=== PATIENT | female | born 1945 | race Caucasian/White ===

== ENCOUNTER 2020-09-07 08:46 | Outpatient (CLI) | payer OTHER, SELFPAY ==
--- NOTE | 2020-09-08 09:25 | WPDNEUROLOGY ---
Neurology EEG Report General Information Date of Study: 09/07/20 TEST eeg DIAGNOSIS Seizure disorder CONDITION OF RECORDING awake drowsy and sleep EEG NUMBER [id number] CLINICAL HISTORY patient is a known case of seizure disorder, started having episodes of blank stares and zoning out brief periods of time about 30 years ago EEG DESCRIPTION basic resting occipital frequency consists of low to medium voltage 8 to 10 hertz per 2nd alpha admixed with large amount of low-voltage 15 to 18 hertz per 2nd beta. During drowsiness low-voltage beta activity seen diffusely admixed with waxing and waning posterior alpha rhythm. Bilateral symmetrical sleep activity seen during sleep. Hyperventilation not done. Photic stimulation produced normal drive. Non paroxysmal. Nonfocal. Nonlateralizing. IMPRESSION No significant abnormalities noted. Clinical correlation recommended
== END 2020-09-07 08:47 | disposition home or self-care (01) ==
LOC: ANHNEURO 08:47
PROVIDERS: PCP Internal Medicine Infectious Disease; Visit Provider Psychiatry & Neurology Neurology
DX: G40.909 Epilepsy, unspecified, not intractable, without status epilepticus (principal)
CPT/HCPCS: 95816

== ENCOUNTER 2022-12-19 13:06 | Emergency (ER) | payer OTHER, SELFPAY ==
--- NOTE | ~2022-12-19 | CT_ITS ---
EXAMINATION: CT pelvis wo con DATE: 12/19/2022 15:46 INDICATION: Bilateral hip and pelvic pain. TECHNIQUE: High resolution computed tomography (CT) of the pelvis was performed without intravenous c ontrast. Additional sagittal and coronal reconstructions were performed. Automated exposure control a nd iterative reconstruction technique were employed. The dose-length product was 414.88 mGy-cm. COMPARISON: None FINDINGS: Nondisplaced sacral insufficiency fractures extending craniocaudally along the bilateral sacral ala a nd transversely across the level of the S2 vertebral body. Chronic L3 compression fracture with <20% central vertebral body height loss and change of prior vertebroplasty. Moderate spondylosis in the vi sualized lower lumbar spine including 4 mm anterolisthesis L5 on S1 with severe associated bilateral facet osteoarthritis. Alignment is otherwise normal. Mild bilateral hip osteoarthritis and mild to mo derate bilateral sacroiliac osteoarthritis. No hip joint effusions. Cholecystectomy clips at the gall bladder fossa. There is moderate colonic diverticulosis with a sigmoid predominance. There is no adj acent inflammatory change to suggest diverticulitis. The uterus is not identified and has likely been surgically resected. No pathologically enlarged pelvic or inguinal lymphadenopathy. IMPRESSION: Typical pattern of acute nondisplaced sacral insufficiency fractures at the left and right sacral ala and extending across the S2. Reviewed, dictated and finalized at location A. IMPRESSION: Typical pattern of acute nondisplaced sacral insufficiency fractures at the lef t and right sacral ala and extending across the S2.
--- NOTE | ~2022-12-19 | CT_ITS ---
EXAMINATION: CT lumbar spine wo con DATE: 12/19/2022 15:45 INDICATION: Back pain TECHNIQUE: Computed tomography (CT) of the lumbar spine was performed without intravenous contrast. A utomated exposure control and iterative reconstruction technique were employed. The dose-length produ ct was 833.75 mGy-cm. COMPARISON: None FINDINGS: 4 mm anterolisthesis L5 on S1. No associated pars intra-articularis defects. Alignment is otherwise n ormal. Chronic compression fractures of T11-L3 with change of prior vertebroplasty at L3. Moderate di sc height loss at L4-L5. Mild disc height loss at T11-T12 and L5-S1. Multilevel disc bulges resulting in mild central canal stenosis at L1-L2 through L5-S1. Severe bilateral facet osteoarthritis at L5-S 1. Additional bilateral multilevel mild to moderate facet osteoarthritis with lower lumbar and lower thoracic predominance. This contributes to multilevel bilateral neural foraminal stenosis, moderate t o severe bilaterally at L5-S1, moderate bilaterally at 10 T11 and L4-L5 and mild at the remaining int ervening neural foramina. Acute appearing sacral insufficiency fracture across S2 and craniocaudally at the lateral aspect of the left and right sacral ala. IMPRESSION: 1. Moderate lumbar and lower thoracic spondylosis with chronic compression fractures of T11-L3 and pr ior L3 vertebroplasty. 2. Acute appearing sacral insufficiency fractures. Reviewed, dictated and finalized at location A. IMPRESSION: 1. Moderate lumbar and lower thoracic spondylosis with chronic compression frac tures of T11-L3 and prior L3 vertebroplasty. 2. Acute appearing sacral insufficiency fractures.
[2022-12-19 13:20] VITALS: BP 146/98; PULSE 90; RESP 16; TEMP 36.8; O2SAT 98
[2022-12-19 15:08] VITALS: BP 153/80; PULSE 74; RESP 18; TEMP 36.7; O2SAT 98
[2022-12-19] MEDS: HYDROcodone/acetaminophen (*CRX) 5-325 MG TABLET 1 TAB PO (15:56)
[2022-12-19 17:10] VITALS: BP 143/74; PULSE 83; RESP 16; O2SAT 96
--- NOTE | 2022-12-19 17:10 | PCCCNOTE ---
Addendum entered by Melanie Snow RN 12/19/22 17:23: Per patient, the only living family of immediate is one sister who is 94. Does have a nephew Gil Garcia who she designates as healthcare poa but has not filled out paperwork. Patient states that her friend Farnaz will be at her house tonight to assist with caregiving. Patient's friend Lorne has arrived and patient is okay to continue conversation with career technical supervisor with Lorne in the room. Original Note: Late entry: Phone call received from registered nurse supervisor Lili to meet with patient regarding long term. Met with patient in ED room 7, she lives alone and has a friend Farnaz that helps her at night. She just needs help getting up and down but uses a cane for walking. Farnaz will do cooking and patient will reheat via microwave. She states that her insurance is working to get her a caregiver during the day. She has a stage technician but she does not know the case workers name and is male. Patient's primary Dr. Mendieta and she has seen him recently and he is trying to help her get into a rehab. Patient wants to get rehab and then get home, the main problem is the pain. Her PCP has referred to pain management but she does not have an appt for a couple weeks. Explained that is point per direction of Dr. Alejandra there is not a medical qualifying dx to be admitted that she will need to continue to work with PCP for rehab-home health. Provided resources on SNFs that take [facility]. Encouraged to contact case briefer with [facility] to help coordinate with PCP. Called to Dr. Mendieta's office no answer unable to leave a vm. Called to [facility] health plan at [phone], per Sylvie in [employer] that patient's case briefer is George Haque at [phone]. Called to George, no answer but does have confidential vm. Left VM advising that patient was discharging from ED and had been in another ED x2 this past weekend, requesting that CM work with PCP to assist patient with rehab/home health therapy.
--- NOTE | 2022-12-19 17:53 | ED.GENADULT ---
HPI - General Adult General Chief complaint: Extremity Injury, Lower Stated complaint: bilateral hip pain Time Seen by Provider: 12/19/22 14:55 History of Present Illness HPI narrative: Patient is a 77-year-old female who presents ER with reports of buttock and bilateral hip pain. Ongoing for 6 weeks. Reports she was recently seen at an outside hospital. She reports she had imaging and was given some pain medication. She is unsure what her imaging showed and is unsure what pain medication she was on. She does know she still takes some Celebrex and she does not take Tylenol. She reports she followed up with her PCP who referred her to pain management but she cannot get in until 01/03/2023. She is unsure what the actual diagnosis is that she is being referred to pain management for. She is also been in touch with her PCP about possible placement at [facility] because she feels like she needs help. She reports she is able to ambulate with a walker and a cane. She reports she will occasionally fall but she attributes that to her seizure disorder as well. Denies any recent falls. She does have a friend who comes to help care for her at night. Related Data Home Medications Medication Instructions Recorded Confirmed alendronate 70 mg tablet 70 mg PO WEEKLY 07/22/21 07/22/21 buspirone 7.5 mg tablet 7.5 mg PO BID 07/22/21 07/22/21 fludrocortisone 0.1 mg tablet 0.1 mg PO BID 07/22/21 07/22/21 oxybutynin chloride 5 mg tablet 15 mg PO DAILY 07/22/21 07/22/21 sertraline 50 mg tablet 50 mg PO DAILY 07/22/21 07/22/21 Allergies Allergy/AdvReac Type Severity Reaction Status Date / Time sulfamethoxazole Allergy Unknown Verified 12/19/22 15:34 trimethoprim Allergy Unknown Verified 12/19/22 15:34 Review of Systems Review of Systems: All systems reviewed & are unremarkable except as noted in HPI and below Constitutional: Constitutional: Denies chills, Denies fatigue and Denies fever(s) ENT: Denies nasal congestion and Denies sore throat Cardiovascular: Cardiovascular: Denies chest pain and Denies rapid heart rate Respiratory: Respiratory: Denies cough and Denies dyspnea Gastrointestinal: Gastrointestinal: Denies abdominal pain, Denies nausea and Denies vomiting Musculoskeletal: Musculoskeletal: Denies back pain, Denies arthralgias and Denies joint swelling PMFSH Past Medical History Medical History (Updated 12/19/22 @ 19:40 by Leo Alejandra MD) Depression Osteoporosis Seizures Surgical History Surgical History (Updated 12/19/22 @ 19:40 by Leo Alejandra MD) Surgical history unknown Exam Narrative: GENERAL: Comfortable -appearing, well-nourished, and in no acute distress. HEAD: Normocephalic, atraumatic. EYES: PERRL and EOMI. ENT: Mucous membranes moist. CHEST: Clear to auscultation. No respiratory distress. HEART: Regular rate and rhythm. Normal peripheral pulses. ABDOMEN: Soft, nontender, nondistended. Back: No reproducible midline tenderness to T/L-spine but there is paraspinal muscular tenderness in the lower lumbar regions. No step-offs or bruising or abrasion. [place] EXTREMITIES: Normal range of motion. No edema. SKIN: Warm, dry, no rash. NEURO: Alert and oriented x3. PSYCH: Normal mood and affect. Course Course Emergency Course: It appears patient has some sacral insufficiency fractures. Care coordination has been down. Patient cannot be placed to rehab through the ER. Patient be given pain control for home and knows to follow-up with PCP about any additional care. Vital Signs Vital signs: Vital Signs Temperature 98.2 F 12/19/22 13:20 Pulse Rate 90 12/19/22 13:20 Respiratory Rate 16 12/19/22 13:20 Blood Pressure 146/98 H 12/19/22 13:20 Pulse Oximetry 98 12/19/22 13:20 Oxygen Delivery Room Air 12/19/22 13:20 Temperature 98.0 F 12/19/22 15:08 Pulse Rate 74 12/19/22 19:02 Respiratory Rate 18 12/19/22 19:02 Blood Pressure 139/8
[2022-12-19 19:02] VITALS: BP 139/85; PULSE 74; RESP 18; O2SAT 98
== END 2022-12-19 19:58 | disposition home or self-care (01) ==
PROVIDERS: Emergency Provider Emergency Medicine; PCP Internal Medicine Infectious Disease
DX: S32.10XA Unspecified fracture of sacrum, initial encounter for closed fracture (principal); X58.XXXA Exposure to other specified factors, initial encounter
CPT/HCPCS: 72131; 72192; 99284; A9270

== ENCOUNTER 2023-09-07 10:58 | Outpatient (CLI) | payer OTHER, SELFPAY ==
[2023-09-07 11:17] LABS: Basophils Absolute Auto 0.1 K/mm3 (0.0-0.1); Basophils Percent Auto 0.7 % (0.2-1.2); Hematocrit 31.8 % (37.0-47.0); Hemoglobin 10.5 g/dL (12.0-15.0); Immature Granulocyte Absolute 0.03 K/mm3 (0.00-0.031); Immature Granulocyte Percent A 0.3 % (0-0.5); Lymphocytes Absolute Auto 1.81 K/mm3 (0.9-3.2); Lymphocytes Percent Auto 19.1 % (18.3-44.2); Mean Corpuscular Hemoglobin 34.3 pg (26-34); Mean Corpuscular Volume 103.9 fl (80-100); Mean Platelet Volume 8.8 fl (7.4-10.4); Monocytes Absolute Auto 0.9 K/mm3 (0.1-0.6); Monocytes Percent Auto 9.2 % (2.6-8.5); Neutrophils Absolute Auto 6.7 K/mm3 (1.3-6.7); Neutrophils Percent Auto 70.7 % (45.5-73.1); Platelet Count Result 404 k/mm3 (150-375); Red Blood Count 3.06 M/mm3 (4.2-5.4); Red Cell Distribution Width 13.7 % (11.5-14.5); White Blood Count 9.5 K/mm3 (4.5-10.0)
[2023-09-07 16:19] LABS: Iron 104 ug/dL (37-170)
[2023-09-07 16:29] LABS: Percent Iron Saturation 40 % (20-50)
[2023-09-07 17:52] LABS: Alanine Aminotransferase 13 U/L (6-35); Albumin Level 4.1 g/dL (3.5-5.1); Alkaline Phosphatase 72 U/L (38-126); Anion Gap 8 mmol/L (8-16); Aspartate Amino Transferase 23 U/L (14-36); Bilirubin,Total 0.6 mg/dL (0.2-1.3); Blood Urea Nitrogen 18 mg/dL (7-17); Calcium 9.3 mg/dL (8.4-10.2); Carbon Dioxide 26 mmol/L (22-30); Chloride 104 mmol/L (98-107); Estimated Glomerular Filt Rate > 60; Glucose 111 mg/dL (65-110); Lactate Dehydrogenase 201 U/L (120-246); Potassium 4.5 mmol/L (3.4-5.0); Sodium 138 mmol/L (137-145)
[2023-09-07 18:58] LABS: Folic Acid 10.5 ng/mL (2.76->20)
[2023-09-11 07:46] LABS: Methylmalonic Acid 221 nmol/L (87-318)
[2023-09-11 10:40] LABS: Alpha 1 Globulin 0.3 g/dL (0.2-0.3); Alpha 2 Globulin 0.8 g/dL (0.5-0.9); Beta 1 Globulin 0.4 g/dL (0.4-0.6); Gamma Globulin 1.4 g/dL (0.8-1.7); Protein, Total 7.3 g/dL (6.1-8.1)
[2023-09-16 10:56] LABS: Soluble Transferrin Receptor 1.08 mg/L (0.76-1.76)
== END 2023-09-07 10:59 | disposition home or self-care (01) ==
LOC: ANHLAB 11:01
PROVIDERS: PCP Internal Medicine Infectious Disease; Visit Provider Internal Medicine Hematology & Oncology
DX: D64.9 Anemia, unspecified (principal)
CPT/HCPCS: 36415; 80053; 82607; 82728; 82746; 83540; 83550; 83615; 83921; 84155; 84165; 84238; 85025